=== PATIENT | male | born 1980 | race Caucasian/White ===

== ENCOUNTER 2017-12-14 13:57 | Emergency (ER) | payer BC, SELFPAY ==
[~2017-12-14] VITALS: Ht 172.7 cm; Wt 113.4 kg
[2017-12-14 14:12] VITALS: BP 164/106
--- NOTE | 2017-12-14 14:15 | NUR ---
ARRIVAL PATIENT ARRIVED TO ED4 AMBULATORY FROM URGENT CARE, PATIENT WAS STUNG BY A BEE AT HOME TODAY, FACIAL SWELLING NOTED AND LEFT UPPER ARM SWELLING, PATIENT THEN WENT TO URGENT CARE AND WAS GIVEN BENADRYL 50MG IM AND SENT TO ED FOR FURTHER EVAL.
[2017-12-14] MEDS ORDERED: EPINEPHRINE ONE (14:24)
[2017-12-14] MEDS ORDERED: EPINEPHRINE SQ STA (14:36)
[2017-12-14] MEDS ORDERED: SOLU-MEDROL IM STA (14:37)
[2017-12-14] MEDS ORDERED: SOLU-MEDROL ONE (14:41)
--- NOTE | 2017-12-14 14:45 | ER.PDOC ---
General Chief Complaint: Allergic Reaction Stated Complaint: ALLERGIC REACTION Time seen by MD: 14:41 Source: patient Exam Limitations: no limitations History of Present Illness Initial Comments Stung by wasps x 2, now with significant swelling of face. Patient denies any shortness of breath, has not had this severe of a reaction ever in the past. Severity: moderate Associated Symptoms: facial swelling, trouble speaking Identified Cause: yes Exposure: bee/wasp sting Prior symptoms/Treatment: No Similar symptoms previous Allergies: Coded Allergies: No Known Allergies (Unverified , 12/14/17) Home Meds Unable to Obtain Active Prescriptions or Reported Meds Vital Signs First Vital Signs Date Time Temp Pulse Resp B/P (MAP) Pulse Ox O2 Delivery O2 Flow Rate FiO2 12/14/17 14:09 98.0 90 22 12/14/17 14:10 99 Room Air 12/14/17 14:12 164/106 (125) Last Vital Signs Date Time Temp Pulse Resp B/P (MAP) Pulse Ox O2 Delivery O2 Flow Rate FiO2 12/14/17 14:12 98.0 90 22 164/106 (125) 99 Room Air Past Medical History Medical History: high cholesterol, hypertension Surgical History: no surgical history Social History Smoking: cigarettes Alcohol Use: occassionally Drug Use: none Reviewed Nursing Reviewed: Vital Signs, Abn. Noted (elevated BP), Nursing Assessment Constitutional: no symptoms reported EENTM: other (swelling of face and right eye, right eyelid swollen closed) Respiratory: no symptoms reported Cardiovascular: no symptoms reported Gastrointestinal: no symptoms reported Genitourinary: no symptoms reported Musculoskeletal: other (swelling of left arm and elbow) Skin: rash (red swelling of face and left a rm) Psychiatric/Neurological: no symptoms reported Endocrine: no symptoms reported Hematologic/Lymphatic: no symptoms reported All Other Systems: Reviewed and Negative Physical Exam General Appearance: anxious (Mild) HEENT: angioedema (left side of face and left eye) Skin: erythematous (left arm and elbow, and right side of face), other Extremities: non-tender, nml ROM, edema (left elbow) Neck: nml inspection Respiratory: no resp. distress, breath sounds nml CVS: reg. rate & rhythm, heart sounds nml Abdomen: non-tender, no organomegaly NEURO/PSYCH: oriented x 3, CN's nml as tested, motor nml, sensation nml, mood/ affect nml Progress Progress Patient feeling much better. Swelling is much improved, right eye now able to open. Departure Time of Disposition: 14:57 Disposition: 01 HOME, SELF-CARE Impression: Primary Impression: Acute allergic reaction Additional Impression: Angioedema Condition: Improved Patient Instructions: Insect Sting Allergy, Anaphylactic Reaction Referrals: GLO GOMES (PCP) PRIMARY CARE PROVIDER Scripts Unable to Obtain Active Prescriptions or Reported Meds Duration or Time Spent with Pa: 30 Problem Qualifiers Primary Impression: Acute allergic reaction Encounter type: initial encounter Qualified Codes: T78.40XA - Allergy, unspecified, initial encounter Additional Impression: Angioedema Encounter type: initial encounter Qualified Codes: T78.3XXA - Angioneurotic edema, initial encounter ELIGIO LAM DO Dec 14, 2017 14:45
--- NOTE | 2017-12-14 15:02 | NUR ---
STATUS FACIAL SWELLING DECREASED, PATIENT STATES HE CAN FEEL THE SWELLING GETTING BETTER.
[2017-12-14 15:03] VITALS: BP 146/90
[2017-12-14 15:15] VITALS: BP 146/90
[2017-12-14] MEDS ORDERED: PEPCID ONE (16:17)
[2017-12-14] MEDS ORDERED: BENADRYL PO STA (16:18)
[2017-12-14] MEDS ORDERED: PEPCID PO STA (16:18)
[2017-12-14] MEDS ORDERED: BENADRYL PO ONE (16:21)
== END 2017-12-14 15:10 | disposition home or self-care (01) ==
LOC: ER 13:57
DX: T78.3XXA Angioneurotic edema, initial encounter (principal); E78.00 Pure hypercholesterolemia, unspecified; I10 Essential (primary) hypertension; F17.210 Nicotine dependence, cigarettes, uncomplicated
CPT/HCPCS: 96372 ×2; 99284; J0171; J2930; Q0163

== ENCOUNTER 2018-07-12 03:01 | Emergency (ER) | payer BC ==
[~2018-07-12] VITALS: Ht 172.7 cm; Wt 116.1 kg
[2018-07-12 03:19] VITALS: BP 133/95
--- NOTE | 2018-07-12 03:21 | NUR ---
KRYSTAL PRUITT FROM RADIOLOGY NOTIFED OF X-RAY ORDER
--- NOTE | 2018-07-12 03:43 | NUR ---
KRYSTAL PRUITT FROM RADIOLOGY IS AT PATIENTS BEDSIDE
--- NOTE | 2018-07-12 04:08 | DIREP ---
PROCEDURE:XRAY RIBS 3VWS-LT COMPARISON:None. INDICATIONS:LEFT RIB PAIN, LOWER AND POSTERIOR FINDINGS: RIBS:No fracture. OTHER:No additional findings. CONCLUSION: 1. No displaced rib fracture Dictated by: Weston Wang Jr. on 07/12/2018 at 04:05 AM
[2018-07-12] MEDS ORDERED: TORADOL ONE (04:21)
--- NOTE | 2018-07-12 04:21 | ER.PDOC ---
General Chief Complaint: Trunk Pain/Injury Stated Complaint: RIB PAIN Time seen by MD: 03:50 Source: patient Exam Limitations: no limitations History of Present Illness Initial Comments Pt fell on Monday against a franky, hurts on left rib cage Occurred: last week Where: home Severity: moderate Injuries/Pain Location: chest Context: Slipped Loss of Consciousness: No Loss of Consciousness Associated Symptoms: chest pain Allergies: Coded Allergies: No Known Allergies (Unverified , 12/14/17) MEDS Unable to Obtain Active Prescriptions or Reported Meds Past Medical History Medical History: GERD, high cholesterol, hypertension Surgical History: no surgical history Social History Smoking: less than 1 pack/day Alcohol Use: occassionally Drug Use: none Review of Systems Constitutional: no symptoms reported Eyes: no symptoms reported Ears, Nose, Mouth, Throat: no symptoms reported Respiratory: no symptoms reported Cardiovascular: no symptoms reported Gastrointestinal: no symptoms reported Genitourinary: no symptoms reported Musculoskeletal: see HPI Skin: no symptoms reported Psychiatric/Neurological: no symptoms reported Physical Exam General Appearance: No Apparent Distress, WD/WN Head: No Evidence of Injury Eyes: bilateral eye normal inspection Ears, Nose, Mouth, Throat: Hearing Grossly Normal, No Evidence of ENT Injury, No Dental Injury Neck: Non-Tender, Normal Alignment, Nexus criteria neg, Normal Inspection Cardiovascular/Respiratory: Regular Rate, Rhythm, No M/R/G, Normal Peripheral Pulses, No JVD, Normal Breath Sounds, No Respiratory Distress, Rib Tenderness ( left) Gastrointestinal: Normal Bowel Sounds, No Organomegaly, No Pulsatile Mass, Non Tender, Soft Back: Normal Inspection, No CVA Tenderness, No Vertebral Tenderness Extremities: No Evidence of Injury, Normal Range of Motion, Non-Tender, No Pedal Edema Neurologic/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: 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 II-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 NML as Tested, No Motor/Sensory Deficits, Alert, Normal Mood/Affect, Oriented x 3 Skin: Normal Color, Warm/Dry Lynne Coma Score Best Eye Response: (4) Open Spontaneously Best Verbal Response: (5) Oriented Best Motor Response: (6) Obeys Commands Departure Time of Disposition: 04:19 Disposition: 01 HOME, SELF-CARE Impression: Primary Impression: Contusion of chest wall Condition: Stable Patient Instructions: Chest Contusion, [id number] Referrals: GLO GOMES (PCP) PRIMARY CARE PROVIDER Scripts Unable to Obtain Active Prescriptions or Reported Meds Duration or Time Spent with Pa: 10 PARRISH ACEVEDO MD Jul 12, 2018 04:21
[2018-07-12] MEDS ORDERED: TORADOL IM ONE (04:30)
[2018-07-12 04:40] VITALS: BP 133/95
== END 2018-07-12 04:38 | disposition home or self-care (01) ==
LOC: ER 03:01
DX: S20.212A Contusion of left front wall of thorax, initial encounter (principal); F17.210 Nicotine dependence, cigarettes, uncomplicated; E78.00 Pure hypercholesterolemia, unspecified; I10 Essential (primary) hypertension; K21.9 Gastro-esophageal reflux disease without esophagitis; W01.0XXA Fall on same level from slipping, tripping and stumbling without subsequent striking against object, initial encounter; Y93.89 Activity, other specified; Y92.098 Other place in other non-institutional residence as the place of occurrence of the external cause; Y99.8 Other external cause status
CPT/HCPCS: 71100; 96372; 99284; J1885

== ENCOUNTER → 2021-03-29 | Outpatient (CLI) | payer BC ==
--- NOTE | 2021-03-29 10:40 | DIREP ---
PROCEDURE:US ABDOMEN LIMITED (SINGLE ORGAN - QUAD) COMPARISON:None. INDICATIONS:ELEVATED LFT'S, ANOREXIA TECHNIQUE:High resolution sonographic examination was performed of the abdomen. FINDINGS: PANCREAS:Head within normal limits. Body and tail obscured by overlying bowel gas. LIVER:Increased hepatic echotexture consistent with hepatic steatosis. There is decreased echotexture adjacent to the gallbladder fossa consistent with focal fatty sparing. No focal hepatic lesion is identified. Hepatopetal flow in the portal vein. GALLBLADDER:Suggestion of sludge in the dependent portion of the gallbladder. No evidence for gallbladder wall thickening or pericholecystic fluid. Negative sonographic Huber's sign. BILIARY:There is no biliary ductal dilatation. RIGHT KIDNEY:Within normal limits. No hydronephrosis. OTHER:Negative. No ascites is identified. CBD:0.5 cm GALLBLADDER WALL: 0.2 cm RIGHT KIDNEY: 11.3 x 6.5 x 5.5 cm CONCLUSION: 1. Hepatic steatosis without focal lesion. 2. Suggestion of gallbladder sludge without evidence of cholelithiasis, wall thickening, or pericholecystic fluid. Dictated by: JOSE Physician on 03/29/2021 at 10:30 AM amber
== END | disposition home or self-care (01) ==
LOC: RAD 08:10
PROVIDERS: ATTEND Physician Assistant
DX: R94.5 Abnormal results of liver function studies (principal); F50.00 Anorexia nervosa, unspecified; K76.0 Fatty (change of) liver, not elsewhere classified
CPT/HCPCS: 76705